=== PATIENT | male | born 1990 | race Caucasian/White ===

== ENCOUNTER 2020-05-30 03:47 | Emergency (ER) | payer BC, SELFPAY ==
[2020-05-30 03:57] VITALS: BP 125/75; PULSE 73; RESP 18; TEMP 36.6; O2SAT 100; BMI 32.3
[2020-05-30] MEDS: Acetaminophen 325 MG TABLET 975 MG PO (04:05)
[2020-05-30] MEDS: Ketorolac Tromethamine 15 MG/ML VIAL IM (04:05)
[2020-05-30] MEDS: Lidocaine 4 % Patch ADH..PATCH 1 PATCH TRANSDERMA (04:06)
--- NOTE | 2020-05-30 04:10 | ED.BACK ---
HPI - Back Pain/Injury General Chief Complaint: Back Pain/Injury Stated Complaint: Fall/Back pain Time Seen by Provider: 05/30/20 03:51 Source: patient Mode of arrival: ambulatory Limitations: no limitations History of Present Illness HPI Narrative: This is a 29-year-old male comes in with significant left sided back pain that he states initially started after shoveling snow but calmed down and he was able to sleep without difficulties. However, he then got up and went into work and while at work began experiencing a worsening sharp back pain during his break while he was at his truck that he states radiated into his left lower extremity and caused him to fall to the ground where he states that he laid for while, denies hitting his head or LOC. He then was able to get into the truck and drive here to the emergency department. He states he has never had pain like this before. Related Data Previous Rx's Medication Instructions Recorded cyclobenzaprine 10 mg PO BEDTIME 3 Days #3 tab 05/30/20 ketorolac 10 mg PO Q6H PRN 5 Days tab 05/30/20 Allergies Allergy/AdvReac Type Severity Reaction Status Date / Time amoxicillin Allergy Hives Verified 05/30/20 03:56 Penicillins Allergy Hives Verified 05/30/20 03:56 Review of Systems Review of Systems: Pertinent positives and negatives as stated in HPI 10 point review systems otherwise negative. PMFSH Past Medical History Source: nursing notes reviewed Social History Social History Alcohol intake: never Smoked in Last 30 Days: No Use of substances other than those prescribed or required for medical reasons: Unknown Advance Directives: No Advance Directives Information Provided: No Physical Exam Vital Signs: Vital Signs: Last Vital Signs Temp 97.8 F 05/30/20 03:57 Pulse 73 05/30/20 03:57 Resp 18 05/30/20 03:57 BP 125/75 05/30/20 03:57 Pulse Ox 100 05/30/20 03:57 Body Mass Index 32.3 VITAL SIGNS: Reviewed. GENERAL: Well developed, well nourished, in no acute distress. HEAD: Normocephalic/atraumatic, EYES: PERRLA, EOMI intact without pain, no nystagmus/pallor/icterus noted EARS: Ext canals without abnormality, TMs non-bulging and non-erythematous NOSE: Nares patent bilateral OROPHARYNX: no oral lesions noted, posterior pharynx clear and non-erythematous without noted tonsillar enlargement/erythema/exudates NECK: Supple, no adenopathy LUNGS: Normal breath sounds. No adventitious sounds or accessory muscle use. SpO2<100> CARDIOVASCULAR: Regular rate and rhythm without noted murmurs, no JVD or lower extremity edema. ABDOMEN: Soft, non-tender, non-distended with bowel sounds. No rigidity. No guarding. No palpable masses or hernias noted MUSCULOSKELETAL: No tenderness, deformities, or effusions noted on gross inspection. BACK: No CVA tenderness, there is noted spasm at the left paraspinal, straight leg test positive on the left EXTREMITIES: No cyanosis, clubbing or edema. SKIN: Inspection of the skin reveals no rashes, ulcerations, jaundice, pallor, or petechiae. NEUROLOGIC: Alert and oriented x 4. Strength and sensation to light touch were grossly intact x 4. Course Course Course Narrative: Is a 29-year-old male with history and clinical presentation most consistent with muscle strain and corresponding spasm. -UA, combination analgesics/Lidoderm patch/anti spasmodic On re-evaluation patient has had significant improvement of his symptoms and it was explained to him that he most likely had a muscle strain with subsequent muscle spasm as there are no concerning neurologic findings. Patient was discharged home in stable condition with a safe ride. Discharge Plan Discharge Clinical Impression: Muscle spasm of back, Muscle strain Patient Disposition: Home, Self-Care Instructions: Muscle Strain (ED), Muscle Spasm (ED), Lower Back Exercises (ED) Additional Instructions: 1. Tylenol 1000 mg, orally, every 6 hours as needed for pain control. Do not exceed 4000 mg within 24 hours. 2. Lidocaine patch, these are available in every [facility], please apply to the area of maximal tenderness as directed on the outside packaging. 3. Please review the back exercises that you have been provided, it is very important that you avoid any decrease in range of motion that could promote stiffness and decreased mobility. 4. Please do not hesitate to return to this emergency department should you have more concerning symptoms such as fevers, chills, inability to urinate/bowel movement The patient and/or family acknowledge understanding of results (as applicable), diagnosis, treatment plan, need for follow up, and symptoms that should prompt a return to the emergency room. Prescriptions: New ketorolac 10 mg tablet 10 mg PO Q6H PRN (Reason: pain) 5 Days RF: 0 cyclobenzaprine 10 mg tablet 10 mg PO BEDTIME 3 Days Qty: 3 RF: 0 Referrals: Edda Gilmore, FIRM[employer] DEVELOPER [Primary Care Provider] - 2 days (Re-evaluation for back spasm) Stand Alone Forms: Work/School Release
[2020-05-30] MEDS: Cyclobenzaprine HCl 10 MG TABLET PO (04:14)
== END 2020-05-30 05:24 | disposition home or self-care (01) ==
LOC: HO.ED 05:00
PROVIDERS: Emergency Provider Student in an Organized Health Care Education/Training Program; PCP Nurse Practitioner Family
DX: M62.830 Muscle spasm of back (principal); S39.012A Strain of muscle, fascia and tendon of lower back, initial encounter; Y93.H1 Activity, digging, shoveling and raking; Y92.017 Garden or yard in single-family (private) house as the place of occurrence of the external cause; Y99.9 Unspecified external cause status
CPT/HCPCS: 96372; 99284; J1885

== ENCOUNTER 2020-09-09 04:16 | Emergency (ER) | payer BC, SELFPAY ==
[2020-09-09 05:36] VITALS: BP 115/66; PULSE 75; RESP 18; TEMP 36.6; O2SAT 99; BMI 28.2
[2020-09-09 05:48] LABS: Appearance Urine CLEAR; Color Urine YELLOW; Glucose Urine UA NEG (NEG); Leukocyte Esterase Urine NEG (NEG); Nitrite Urine NEG (NEG); UACC Culture Trigger NO; Urine Blood NEG (NEG); Urine Ketones NEG (NEG); Urine Protein NEG (NEG-TRACE)
--- NOTE | 2020-09-09 07:11 | ED_ITS ---
HPI - General Adult General Chief complaint: Back Pain/Injury Stated complaint: BACK PAIN Time Seen by Provider: 09/09/20 06:11 Source: patient and EMS Mode of arrival: EMS Limitations: no limitations History of Present Illness HPI narrative: patient comes to the ED c/o back pain for 3 months. States that he fell 3 months ago, and recently Started having muscle spasms. Patient states he has been having bilateral lower back pain and spasms intermittently for 3 months. Patient states he had a fall. No recent injuries. Patient denies urinary/fecal incontinence / retention. Patient denies any neck pain, no upper back pain, only bilateral lower back pain, denies spine tenderness. Patient states that he can feel his muscles in his back cramping Related Data Previous Rx's Medication Instructions Recorded cyclobenzaprine 10 mg PO BEDTIME 3 Days #3 tab 05/30/20 ketorolac 10 mg PO Q6H PRN 5 Days tab 05/30/20 ketorolac 10 mg PO Q6H PRN 5 Days #20 tab 05/30/20 baclofen 10 mg PO BID #7 tab 09/09/20 ibuprofen 600 mg PO TID PRN #10 tab 09/09/20 Allergies Allergy/AdvReac Type Severity Reaction Status Date / Time amoxicillin Allergy Hives Verified 05/30/20 03:56 Penicillins Allergy Hives Verified 05/30/20 03:56 Review of Systems Review of Systems: Constitutional : No Weight loss, No Fever, No Chills, No Night Sweats, No Fatigue, No Malaise ENT/Mouth : No Hearing loss, No Ear Pain, No Nasal Congestion, No Sinus Pain, No Hoarseness, No sore throat, No Rhinorrhea, No Swallowing Difficulty Eyes: No Eye Pain, No Swelling, No Redness, No Foreign Body, No Discharge, No Vision Changes Cardiovascular : No Chest Pain, No SOB, No Dyspnea on Exertion, No Orthopnea, No Edema, No Palpitations Respiratory : No Cough, No Sputum, No Wheezing, No Smoke Exposure, No Dyspnea Gastrointestinal : No Nausea, No Vomiting, No Diarrhea, No Constipation, No abdominal Pain, No Hematochezia, No Melena Genitourinary : no irregular bleeding, No Dysuria, No Urinary Frequency, No Hematuria, No Urinary Incontinence, No Urgency, No Flank Pain, No Urinary Flow Changes, No Hesitancy Musculoskeletal : No joint pain, No Myalgias, No Joint Swelling, complaining of bilateral lower and middle back pain Skin : No Skin Lesions, No rash Neuro : No Weakness, No Numbness, No Paresthesias, No Loss of Consciousness, No Dizziness, No Headache Psych : No Anxiety/Panic, No Depression, No SI/HI/AH/VH, No Social Issues, Heme/Lymph: No Bruising, No Bleeding,No Lymphadenopathy Endocrine : No Polyuria, No Polydipsia, No Temperature Intolerance [facility] Social History Social History Alcohol intake: never Advance Directives: No Physical Exam Vital Signs: Vital Signs: Last Vital Signs Temp 97.9 F 09/09/20 05:36 Pulse 75 09/09/20 05:36 Resp 18 09/09/20 05:36 BP 115/66 09/09/20 05:36 Pulse Ox 99 09/09/20 05:36 Body Mass Index 28.2 Appearance: Alert. Oriented X3. No acute distress. Eyes: Pupils equal, round and reactive to light. ENT: Pharynx normal. Neck: Normal inspection. Neck supple. No lymph nodes noted. No crepitus CVS: Normal heart rate and rhythm. Pulses normal. Normal S1 and S2 Respiratory: No respiratory distress. Breath sounds normal. No Wheezing. No rales Abdomen: Soft and nontender. No rigidity. No distention. good BS x4 back: Pain to palpation over the paraspinal muscles, currently has bilateral muscle spasms, more notable on the left side. No pain to palpation over the cervical/thoracic/lumbar spine. Patient able to flex and extends the back with no pain, mild positive straight leg raise test on the right side, negative on the left side Skin: Skin warm and dry. Normal skin color. Normal skin turgor. Extremities: No lower extremity edema. No lower extremity edema. No Lacerations. No Rash Neuro: Oriented X 3. No motor deficit. No sensory deficit. Moving all extermities. No slurred speech. Course Course Course Narrative: I discussed the physical exam with the patient, patient has obvious muscle spasms with possible sciatica. Patient will follow-up with primary care physician Medical Decision Making Lab Data Labs: Lab Results 09/09/20 Range/Units 05:32 Urine Color YELLOW Urine Appearance CLEAR Urine pH 6.0 (5.0-8.0) Ur Specific Panther Burn 1.020 (1.005-1.025) Urine Protein NEG (NEG-TRACE) MG/DL Urine Glucose (UA) NEG (NEG) MG/DL Urine Ketones NEG (NEG) MG/DL Urine Blood NEG (NEG) Urine Nitrite NEG (NEG) Ur Leukocyte Esterase NEG (NEG) Discharge Plan Discharge Clinical Impression: Muscle spasm Patient Disposition: Home, Self-Care Instructions: Muscle Spasm (ED) Prescriptions: New ibuprofen 600 mg tablet 600 mg PO TID PRN (Reason: pain) Qty: 10 RF: 0 baclofen 10 mg tablet 10 mg PO BID Qty: 7 RF: 0 No Action ketorolac 10 mg tablet 10 mg PO Q6H PRN (Reason: pain) 5 Days RF: 0 cyclobenzaprine 10 mg tablet 10 mg PO BEDTIME 3 Days Qty: 3 RF: 0 ketorolac 10 mg tablet 10 mg PO Q6H PRN (Reason: pain) 5 Days Qty: 20 RF: 0 Stand Alone Forms: Work/School Release
[2020-09-09] MEDS: Ketorolac Tromethamine 60 MG/2 ML VIAL IM (07:37)
[2020-09-09] MEDS: Baclofen 10 MG TABLET PO (07:37)
== END 2020-09-09 08:08 | disposition home or self-care (01) ==
PROVIDERS: Emergency Provider Emergency Medicine; PCP Nurse Practitioner Family
DX: M62.838 Other muscle spasm (principal); M54.5 Low back pain; Z79.899 Other long term (current) drug therapy
CPT/HCPCS: 81003; 96372; 99283; 99284; J1885

== ENCOUNTER 2020-09-23 02:48 | Emergency (ER) | payer BC, SELFPAY ==
[2020-09-23 03:10] VITALS: BP 136/72; PULSE 69; RESP 18; TEMP 36.6; O2SAT 99; BMI 28.3
[2020-09-23] MEDS: Ketorolac Tromethamine 15 MG/ML VIAL IM (04:00)
[2020-09-23] MEDS: Acetaminophen 325 MG TABLET 975 MG PO (04:00)
--- NOTE | 2020-09-23 04:01 | ED_ITS ---
HPI - Extremity Injury (Lower) General Chief Complaint: Extremity Injury, Lower Stated Complaint: Foot pain Time Seen by Provider: 09/23/20 04:00 Source: patient Mode of arrival: ambulatory History of Present Illness HPI Narrative: 29-year-old male who presents with left foot pain that is worse after initially standing in the morning states that it is ?excruciating . Patient then states that it improves with walking but by the time he gets to work and goes to step out of the truck the pain is severe again. He endorses that he has recently purchased a motorcycle and has spent some time riding with new shoes. Otherwise, he denies any trauma, fevers, chills, numbness, tingling. Related Data Previous Rx's Medication Instructions Recorded cyclobenzaprine 10 mg PO BEDTIME 3 Days #3 tab 05/30/20 ketorolac 10 mg PO Q6H PRN 5 Days tab 05/30/20 ketorolac 10 mg PO Q6H PRN 5 Days #20 tab 05/30/20 baclofen 10 mg PO BID #7 tab 09/09/20 ketorolac 10 mg PO Q6H PRN 5 Days #14 tab 09/23/20 Allergies Allergy/AdvReac Type Severity Reaction Status Date / Time amoxicillin Allergy Hives Verified 09/23/20 03:10 Penicillins Allergy Hives Verified 09/23/20 03:10 Review of Systems Review of Systems: Pertinent positives and negatives as stated in HPI 10 point review of systems is otherwise negative. PMFSH Past Medical History Source: nursing notes reviewed Medical History Anxiety Back pain Social History Social History Alcohol intake: never Smoking Status: Current every day smoker Smoked in Last 30 Days: Yes Use of substances other than those prescribed or required for medical reasons: Yes Substance Use Type: Marijuana Substance Use Frequency: Socially Any prior treatment program specific to substance use: No Advance Directives: No Physical Exam Vital Signs: Vital Signs: Last Vital Signs Temp 97.9 F 09/23/20 03:10 Pulse 69 09/23/20 03:10 Resp 18 09/23/20 03:10 BP 136/72 09/23/20 03:10 Pulse Ox 99 09/23/20 03:10 Body Mass Index 28.3 VITAL SIGNS: Reviewed. GENERAL: Well developed, well nourished, in no acute distress. HEAD: Normocephalic/atraumatic OROPHARYNX: no oral lesions noted, posterior pharynx clear NECK: Supple, no adenopathy LUNGS: Normal breath sounds. No adventitious sounds or accessory muscle use. SpO2<99> CARDIOVASCULAR: Regular rate and rhythm without noted murmurs ABDOMEN: Soft, non-tender, non-distended with bowel sounds. LEFT FOOT: No deformities, no erythema/induration/swelling, capillary refill is less than 3 seconds, pain on palpation of of arch of foot as well as pain at calcaneus NEUROLOGIC: Alert and oriented x 4. Course Course Course Narrative: 29-year-old male with history and clinical presentation most consistent with plantar fasciitis of the left foot and there is no suspicion for fracture, cellulitis, or dislocation. Patient treated with combination analgesics and then discharged home in stable condition. Discharge Plan Discharge Clinical Impression: Plantar fasciitis, left Patient Disposition: Home, Self-Care Instructions: Plantar Fasciitis (ED), Plantar Fasciitis Exercises (ED) Additional Instructions: 1. Tylenol 1000 mg, orally, every 6 hours as needed for pain control. Do not exceed 4000 mg within 24 hours. 2. Please review the information regarding plantar fasciitis exercises, consider placing inserts into your work boots, as well as freezing water bottles and then rolling your foot across the frozen water bottle. 3. Follow-up with your primary care provider in the next 2-3 days for re- evaluation. Do not hesitate to return to the emergency department should you experience any acute worsening of your symptoms. Prescriptions: New ketorolac 10 mg tablet 10 mg PO Q6H PRN (Reason: pain) 5 Days Qty: 14 RF: 0 No Action baclofen 10 mg tablet 10 mg PO BID Qty: 7 RF: 0 ketorolac 10 mg tablet 10 mg PO Q6H PRN (Reason: pain) 5 Days RF: 0 cyclobenzaprine 10 mg tablet 10 mg PO BEDTIME 3 Days Qty: 3 RF: 0 ketorolac 10 mg tablet 10 mg PO Q6H PRN (Reason: pain) 5 Days Qty: 20 RF: 0 Referrals: Edda Gilmore NP [Primary Care Provider] - 2 days (Re-evaluation outpatient management of left plantar fasciitis.)
== END 2020-09-23 04:34 | disposition home or self-care (01) ==
PROVIDERS: Emergency Provider Student in an Organized Health Care Education/Training Program; PCP Nurse Practitioner Family
DX: M72.2 Plantar fascial fibromatosis (principal); M79.672 Pain in left foot; F17.200 Nicotine dependence, unspecified, uncomplicated; F12.90 Cannabis use, unspecified, uncomplicated
CPT/HCPCS: 96372; 99283; 99284; J1885

== ENCOUNTER 2020-10-08 05:11 | Emergency (ER) | payer BC, SELFPAY ==
--- NOTE | ~2020-10-08 | XR_ITS ---
EXAMINATION: XR KNEE, RIGHT CLINICAL INFORMATION: Twisted knee. Pain. COMPARISON: None TECHNIQUE: Four views of the right knee. FINDINGS: The tricompartment joint space is normal. No bony erosive changes, loose bodies or suprapatellar joint effusion seen. No visible fracture or dislocation. There is mild prominence of anterior vertebral tubercle. XR/XR knee RT 3V IMPRESSION: No acute fracture, dislocation or subluxation. No abnormal joint effusion.
[2020-10-08 07:40] VITALS: BP 117/63; PULSE 69; RESP 16; TEMP 36.4; O2SAT 99; BMI 32.3
--- NOTE | 2020-10-08 07:56 | ED.GENADULT ---
HPI - General Adult General Chief complaint: Extremity Injury, Lower Stated complaint: Knee inj/Work related Time Seen by Provider: 10/08/20 07:37 Source: patient Mode of arrival: wheelchair Limitations: no limitations History of Present Illness HPI narrative: 30-year-old male who presents emergency department for evaluation of right knee injury that he sustained at work. The patient states that he works for a [employer]. He states that he was stepping on a roller and twisted his right knee. He describes a eversion type injury with his knee bending laterally. He states he developed immediate pain in his knee. He states that the pain is a constant, sharp pain which is greater than 10/10. Pain is worse if he bends his knee or free tries to bear weight. He denied any other injury. He states that he has never injured his knee before. He was brought to the emergency department by his boss. Related Data Previous Rx's Medication Instructions Recorded cyclobenzaprine 10 mg PO BEDTIME 3 Days #3 tab 05/30/20 ketorolac 10 mg PO Q6H PRN 5 Days tab 05/30/20 ketorolac 10 mg PO Q6H PRN 5 Days #20 tab 05/30/20 baclofen 10 mg PO BID #7 tab 09/09/20 ketorolac 10 mg PO Q6H PRN 5 Days #14 tab 09/23/20 oxycodone 5 mg PO Q4H PRN #14 tab 10/08/20 Allergies Allergy/AdvReac Type Severity Reaction Status Date / Time amoxicillin Allergy Hives Verified 09/23/20 03:10 Penicillins Allergy Hives Verified 09/23/20 03:10 Review of Systems Review of Systems: Yes all other systems are reviewed and are negative [facility] Past Medical History [facility] Narrative: No past medical history, has history of appendectomy. The patient smokes 1/2 pack cigarettes per day times 15 years, he denies drug and alcohol use. The patient works at a [employer]. Medical History (Updated 10/08/20 @ 08:07 by Roland Cooper MD) Anxiety Back pain Surgical History (Updated 10/08/20 @ 07:41 by Julieta Orr) Hx of appendectomy Social History Social History Alcohol intake: never Smoking Status: Current every day smoker Substance Use Type: Marijuana Advance Directives: Yes Advance Directives Information Provided: No Advance Directives on File: No Physical Exam Vital Signs: Vital Signs: Last Vital Signs Temp 97.9 F 10/08/20 08:26 Pulse 97 10/08/20 08:26 Resp 17 10/08/20 08:26 BP 138/70 10/08/20 08:26 Pulse Ox 98 10/08/20 08:26 Body Mass Index 32.3 Const: General: cooperative, healthy appearing and in distress (Moderate secondary to right knee pain) Orientation/consciousness: oriented to person Limitations: no limitations Neuro: General: oriented to person Extrem: Other: The patient does have a right knee joint effusion, he has increased tenderness with palpation over the right lateral collateral ligament, mild tenderness with palpation of the right medial collateral ligament. Has limited flexion extension secondary to pain, he has increased pain with lateral knee stress, negative anterior draw sign but limited secondary to pain, right lower extremity is neurovascularly intact, skin is intact. Course Course Course Narrative: 30-year-old male who presents emergency department for evaluation of a right knee injury that he sustained at work. Physical examination did reveal that he was in distress secondary to his pain. He does have a small joint effusion with moderate tenderness with palpation over the lateral collateral ligament and mild tenderness palpation over the medial collateral ligament. Has increased pain with lateral stress of the knee and a negative anterior draw sign which was limited by pain. Patient's presentation is consistent with a knee sprain. X-ray was ordered to rule out fracture. His pain was treated with ibuprofen 600 mg orally, Tylenol 975 mg orally and oxycodone 5 mg orally. 0918: The patient's x-ray was negative. Patient was placed in a knee immobilizer and given crutches. He was advised to take Tylenol and ibuprofen and for pain not relieved by these 2 medications he was prescribed oxycodone. Patient will need to follow-up with our occupational health clinic to determine his return to work status. Discharge Plan Discharge Clinical Impression: Knee LCL sprain Qualifiers: Encounter type: initial encounter Laterality: right Qualified Code(s): S83.421A - Sprain of lateral collateral ligament of right knee, initial encounter Patient Disposition: Home, Self-Care Instructions: Knee Sprain (ED), Knee Immobilizer (ED) Additional Instructions: Your physical examination is consistent with a sprain of the right knee (most likely the lateral collateral ligament). Take ibuprofen 200 mg pills, 3 pills every 6 hours as needed for pain. Take Tylenol (acetaminophen) 500 mg pills, 2 pills every 4 to 6 hours as needed for pain. For pain not relieved by the above medications take oxycodone 5 mg pills, 1 pill every 4-6 hours as needed for pain. This medication is a narcotic medication and can be addicting. If your concerned about addiction do not get this medication filled or you can ask the pharmacist for less pills than prescribed. This medication will make you sleepy. Do not drive or work while taking this medication. Wear the knee immobilizer and use the crutches. Call [facility] today to make a follow-up appointment as soon as possible, no work until you are re-evaluated by the occupational health clinic and they can determine your return to work status [facility]'s phone number is Please return to the emergency department if your symptoms get worse or if you develop any symptoms that are concerning to you. Prescriptions: New oxycodone 5 mg tablet 5 mg PO Q4H PRN (Reason: pain) Qty: 14 RF: 0 No Action baclofen 10 mg tablet 10 mg PO BID Qty: 7 RF: 0 ketorolac 10 mg tablet 10 mg PO Q6H PRN (Reason: pain) 5 Days Qty: 14 RF: 0 ketorolac 10 mg tablet 10 mg PO Q6H PRN (Reason: pain) 5 Days RF: 0 cyclobenzaprine 10 mg tablet 10 mg PO BEDTIME 3 Days Qty: 3 RF: 0 ketorolac 10 mg tablet 10 mg PO Q6H PRN (Reason: pain) 5 Days Qty: 20 RF: 0 Stand Alone Forms: Work/School Release
[2020-10-08] MEDS: Ibuprofen 600 MG TABLET PO (08:02)
[2020-10-08] MEDS: oxyCODONE HCl Immed Release 5 MG TABLET PO (08:02)
[2020-10-08] MEDS: Acetaminophen 325 MG TABLET 975 MG PO (08:03)
[2020-10-08 08:26] VITALS: BP 138/70; PULSE 97; RESP 17; TEMP 36.6; O2SAT 98
== END 2020-10-08 09:30 | disposition home or self-care (01) ==
PROVIDERS: Emergency Provider Emergency Medicine Emergency Medical Services; PCP Nurse Practitioner Family
DX: S83.421A Sprain of lateral collateral ligament of right knee, initial encounter (principal); M25.561 Pain in right knee; F12.90 Cannabis use, unspecified, uncomplicated; X50.1XXA Overexertion from prolonged static or awkward postures, initial encounter; Y93.9 Activity, unspecified; Y92.9 Unspecified place or not applicable; Y99.0 Civilian activity done for income or pay; Z79.899 Other long term (current) drug therapy
CPT/HCPCS: 73562; 96365; 99283; 99284

== ENCOUNTER → 2020-10-09 11:29 | Outpatient (BNVA) | payer OTHER, SELFPAY | PROVIDERS: PCP Nurse Practitioner Family; Visit Provider Physician Assistant Medical ==

== ENCOUNTER → 2020-10-10 11:35 | Outpatient (BNVA) | payer BC, SELFPAY | PROVIDERS: PCP Nurse Practitioner Family; Visit Provider Physician Assistant Medical | DX: S83.421A Sprain of lateral collateral ligament of right knee, initial encounter (principal); X58.XXXA Exposure to other specified factors, initial encounter | CPT/HCPCS: 99213 ==

== ENCOUNTER → 2020-10-13 09:35 | Outpatient (BNVA) | payer BC, SELFPAY | PROVIDERS: PCP Nurse Practitioner Family; Visit Provider Physician Assistant | DX: S83.421D Sprain of lateral collateral ligament of right knee, subsequent encounter (principal); X58.XXXD Exposure to other specified factors, subsequent encounter | CPT/HCPCS: 99213 ==